=== PATIENT | male | born 1955 | race Caucasian/White ===

== ENCOUNTER → 2019-08-26 08:51 | Outpatient (REF) | payer MEDICARE, SELFPAY | LOC: ANHLAB 08:51 | PROVIDERS: PCP Family Medicine; Visit Provider Nurse Practitioner Family | DX: C44.42 Squamous cell carcinoma of skin of scalp and neck (principal) | CPT/HCPCS: 88305; 88331; 88332 ==

== ENCOUNTER 2019-09-01 01:18 | Day surgery (SDC) | payer MEDICARE, SELFPAY ==
[2019-08-31 08:45] VITALS: BMI 25.0
--- NOTE | 2019-09-01 10:34 | WPDANESEPPF ---
Anes - Initial Pre Proc Eval Procedure: Operation Date: 09/01/19 12:00 Proposed Procedures p Full Thickness Skin Graft Scalp Times Two - Haris Gross MD Date/Time: 09/01/19 10:34 Surgeon: Haris Gross MD Pre Op Diagnosis: scalp wound x 2 Patient Data Age: 64 Gender: M Height: 5 ft 8 in Weight: 74.85 kg Allergies Allergy/AdvReac Type Severity Reaction Status Date / Time allopurinol Allergy Unknown ANGIOEDEMA Verified 08/31/19 10:17 Cephalosporins Allergy Unknown Unknown Verified 08/31/19 08:13 finasteride Allergy Unknown ANGIOEDEMA Verified 08/31/19 10:17 gentamicin Allergy Unknown Unknown Verified 08/31/19 08:13 tacrolimus Allergy Unknown Hallucinati Verified 08/31/19 10:17 ng Home Medications Medication Instructions Recorded Confirmed Type B complex-vitamin C-folic acid 0.8 1 tablet PO DAILY tablet 08/26/19 08/31/19 History mg tablet carvedilol 6.25 mg tablet 6.25 mg PO BID tablet 08/26/19 08/31/19 History mycophenolate mofetil 250 mg 500 mg PO BID 08/26/19 08/31/19 History capsule prednisone 5 mg tablet 5 mg PO DAILY tablet 08/26/19 08/31/19 History ropinirole 4 mg tablet 4 mg PO HS 08/26/19 08/31/19 History sertraline 50 mg tablet 75 mg PO DAILY 08/26/19 08/31/19 History sevelamer carbonate 800 mg tablet 1,600 mg PO TID tablet 08/26/19 08/31/19 History simvastatin 20 mg tablet 20 mg PO DAILY tablet 08/26/19 08/31/19 History tamsulosin 0.4 mg capsule 0.4 mg PO DAILY 08/26/19 08/31/19 History B complex-vitamin C-folic acid 1 tablet PO DAILY 08/31/19 08/31/19 History [Nephro-Uday] bumetanide 1 mg PO DAILY 08/31/19 08/31/19 History fluorouracil 1 applic TOPICAL PRN PRN 08/31/19 08/31/19 History Patient hx anesthesia problems: none Family hx anesthesia problems: none PMFSH Past Medical History Medical History Hyperlipidemia Hypertension Neuropathy CHARY (obstructive sleep apnea) Surgical History Surgical History History of kidney transplant History of liver transplant Anes - Eval Final PreProcedure Day of Procedure 09/01/19 10:34 Patient weight: normal Heart: regular rate and rhythm Lungs: decreased breath sounds Airway: Mallampati scale class II Neurological: alert and oriented Last oral intake: >/= 8 hours ASA classification: IV Emergent: no Anesthetic plan: proceed Anesthesia type and monitoring: general GIVS and standard monitoring Informed Consent: The patient's anesthetic plan and its attendant risks and benefits were discussed with the patient/family/POA. Questions were solicited and answers provided to the satisfaction of the patient/family/POA.
[2019-09-01] MEDS: SODIUM CHLORIDE 0.9% IV 500 ML 30 ML IV CONT (10:40)
[2019-09-01 11:05] LABS: INR 1.1
[2019-09-01 11:06] LABS: Partial Thromboplastin Time 38.9 SECONDS (22.3-36.8)
[2019-09-01 11:07] LABS: Blood Urea Nitrogen 55 mg/dL (9-20); Calcium 8.3 mg/dL (8.4-10.2); Carbon Dioxide 30 mmol/L (22-30); Chloride 96 mmol/L (98-107); Estimated CRCL calculation 8 ml/min; Estimated Glomerular Filt Rate 7; Glucose 108 mg/dL (75-110); Potassium 3.7 mmol/L (3.4-5.0); Sodium 134 mmol/L (137-145)
--- NOTE | 2019-09-01 11:46 | WPDHPUPDATE1 ---
History and Physical Update Update Date/Time: 09/01/19 11:46 History and Physical has been reviewed, including an updated exam of the patient. There are NO changes in the patient's condition. Risks, benefits, and alternatives have been discussed and questions answered. Patient agrees to proceed with procedure.
[2019-09-01 11:47] VITALS: BP 128/58; PULSE 60; RESP 16; TEMP 37.7; O2SAT 98
[2019-09-01] MEDS: LIDO 1%/EPINEPHRINE 1:100,000 20 ML VIAL 10 ML INFILTRATE (12:30)
[2019-09-01] MEDS: CLINDAMYCIN 900 MG/NS 50 ML 900 MG/50 ML PIGGYBACK 50 MG IVPB (12:30)
--- NOTE | 2019-09-01 13:33 | SUR.OPER ---
EBL:20CC
--- NOTE | 2019-09-01 13:36 | PM.PROC ---
Procedure Note - Detailed Date of procedure: 09/01/19 Pre-op diagnosis: scalp wound x 2 Acquired deformity scalp History SCC scalp x2 Post-op diagnosis: same Procedure performed: 1. Full-thickness skin graft right crown 2 x 4 cm (8cm2) 2. Full-thickness skin graft mid crown 2 x 2.5 cm (5cm2) Description of procedure: Patient was marked in the preoperative holding area with her verification. He was taken to the operating room placed supine on the operating room table. Anesthesia provided by anesthesiology and prepped and draped in a standard sterile fashion. Surgical time-out was taken. I marked out the dimensions of the scalp wounds on the right neck. I chose an area with minimal skin changes as he had significant across the chest. 1% lidocaine and 0.25% Marcaine with epinephrine was used anesthetize locally. I injected there and then the scalp. Fifteen blade used to excise an ellipse of skin of the right neck. This was just deep to the dermis and removed. I defatted it is deep surface. This was closed with 3-0 Monocryl followed by running subcuticular 4-0 Monocryl and tissue glue. I proceeded the scalp. I sharply debrided the tissue back to good clean viable tissue. I then irrigated with saline solution. I trimmed the full-thickness skin graft as necessary and placed it into the wounds. These were stapled into place. I created a tie-over bolster with Xeroform and wet cotton which was sutured into place with 3-0 nylon. Patient was woken taken the PACU without difficulty. All instrument sponge counts were correct at the end of the case. Anesthesia: MAC Surgeon: Haris Gross MD Estimated blood loss (mL): 2 Drains: No Packing: Yes (Bolster dressing scalp x2) Pathology: none sent Complications: No immediate complications Condition: stable Disposition: PACU
[2019-09-01 13:42] VITALS: BP 104/42; PULSE 71; RESP 16
[2019-09-01 14:12] VITALS: BP 118/52; PULSE 65; RESP 14
[2019-09-01 14:58] VITALS: BP 110/52; PULSE 62; RESP 14; O2SAT 96
== END 2019-09-01 15:00 | disposition home or self-care (01) ==
PROVIDERS: Anesthesiology; PCP Family Medicine; Visit Provider Surgery Plastic and Reconstructive Surgery
PROC: (CPT 15220; principal; 2019-09-01 12:00)
DX: Z48.1 Encounter for planned postprocedural wound closure (principal); M95.2 Other acquired deformity of head; Z85.828 Personal history of other malignant neoplasm of skin; I10 Essential (primary) hypertension; E78.5 Hyperlipidemia, unspecified; G62.9 Polyneuropathy, unspecified; G47.33 Obstructive sleep apnea (adult) (pediatric); Z94.0 Kidney transplant status; Z94.4 Liver transplant status
CPT/HCPCS: 15220; 15004; 36415; 80048; 85610; 85730; J2250; J2405; J2704; J3010; J7040

== ENCOUNTER → 2019-12-14 13:18 | Outpatient (REF) | payer MEDICARE, OTHER, SELFPAY | LOC: ANHLAB 13:18 | PROVIDERS: PCP Family Medicine; Visit Provider Nurse Practitioner | DX: D49.2 Neoplasm of unspecified behavior of bone, soft tissue, and skin (principal); C44.529 Squamous cell carcinoma of skin of other part of trunk; C44.222 Squamous cell carcinoma of skin of right ear and external auricular canal; C44.319 Basal cell carcinoma of skin of other parts of face; C44.629 Squamous cell carcinoma of skin of left upper limb, including shoulder; L70.0 Acne vulgaris | CPT/HCPCS: 88305 ==

== ENCOUNTER → 2019-12-30 07:04 | Outpatient (REF) | payer MEDICARE, OTHER, SELFPAY | LOC: ANHLAB 07:04 | PROVIDERS: PCP Family Medicine; Visit Provider Nurse Practitioner Family | DX: C44.319 Basal cell carcinoma of skin of other parts of face (principal); C44.222 Squamous cell carcinoma of skin of right ear and external auricular canal | CPT/HCPCS: 88305; 88331 ==

== ENCOUNTER → 2020-01-06 07:19 | Outpatient (REF) | payer MEDICARE, OTHER, SELFPAY | LOC: ANHLAB 07:19 | PROVIDERS: PCP Family Medicine; Visit Provider Nurse Practitioner Family | DX: C44.529 Squamous cell carcinoma of skin of other part of trunk (principal); C44.629 Squamous cell carcinoma of skin of left upper limb, including shoulder | CPT/HCPCS: 88305; 88331 ==